=== PATIENT | male | born 1975 | race Caucasian/White ===

== ENCOUNTER 2017-11-25 16:31 | Emergency (ER) | payer OTHER ==
[~2017-11-25] VITALS: Ht 170.2 cm; Wt 100.0 kg
[2017-11-25 16:34] VITALS: BP 100/68; PULSE 73; RESP 16; TEMP 97.5; O2SAT 98
[2017-11-25] MEDS ORDERED: METO100T PO (17:23)
[2017-11-25] MEDS ORDERED: TRAM50TA PO (17:23)
[2017-11-25] MEDS ORDERED: ASPI1TAB57 PO (17:23)
[2017-11-25] MEDS ORDERED: PERC5TAB12 PO ×2 (17:23→18:40)
[2017-11-25] MEDS ORDERED: CYCL10TA PO ×2 (17:23→18:40)
[2017-11-25] MEDS ORDERED: SODIUM CHLOR 0.9% 1000 ML INJ 1,000 ML IV SCH (18:01)
[2017-11-25] MEDS ORDERED: SODIUM CHLORIDE 0.9% FLUSH 10 ML FLUSH IV FLUSH PRN (18:15)
[2017-11-25] MEDS ORDERED: KETOROLAC TROMETHAMINE 30 MG/ML (IVP) VIAL IVP ONE (18:15)
[2017-11-25] MEDS ORDERED: MORPHINE SULFATE 4 MG/ML INJ IV PUSH ONE (18:15)
[2017-11-25] MEDS ORDERED: predniSONE 20 MG TAB PO ONE (18:15)
[2017-11-25] MEDS ORDERED: ONDANSETRON HCL 4 MG/2 ML VIAL IVP ONE (18:15)
[2017-11-25 18:24] VITALS: O2SAT 100
--- NOTE | 2017-11-25 18:39 | PD ---
HPI Chief Complaint: Back/ Neck Pain or Injury Time Seen by Provider: 17:36 Travel History International Travel<30 days: Yes Contact w/Intl Traveler<30days: Yes Name of Country Traveled to: [place] Traveled to known affect area: No History of Present Illness HPI 42-year-old [place] male presents to the emergency department with his , who are visiting from [place] for her father who is currently in hospice care. Patient has history of multiple level lumbar back fusions while in [place]. The states he normally takes Percocet, or tramadol, as well as Flexeril for his pain. states that they have been here longer than they had expected, but plan to return to [place] in the next 2 weeks. Patient reportedly was sitting and reached up, when he developed excruciating back pain with radiation down both lower extremities. His states that this happens occasionally, and is normally treated with steroids and pain medicine. Patient denies any change in his bowel or bladder. He has chronic numbness in both feet which is not new. Pain is currently 9 out of 10, and worse with certain movements. He denies more weakness in the lower extremities and normal. Chief complaint is pain. He has no known drug allergies. PFSH Past Medical History Cardiovascular Problems: Yes ([facility]) Musculoskeletal: Yes (SPINAL FUSION ONE YEAR AGO) Myocardial Infarction: Yes (THREE) Tetanus Vaccination: Unknown Social History Alcohol Use: No Tobacco Use: No Substance Use: No Allergies-Medications (Allergen,Severity, Reaction): Coded Allergies: No Known Allergies (Unverified , 11/25/17) Reported Meds & Prescriptions Reported Meds & Active Scripts Active Flexeril (Cyclobenzaprine HCl) 10 Mg Tab 10 Mg PO TID Percocet (Oxycodone-Acetaminophen) 5-325 mg Tab 1-2 Tab PO Q6H PRN Prednisone 20 Mg Tab 20 Mg PO BID 7 Days Reported Aspirin 81 (Aspirin) 81 Mg Tabdr 81 Mg PO DAILY Metoprolol Tartrate 100 Mg Tab 100 Mg PO DAILY Flexeril (Cyclobenzaprine HCl) 10 Mg Tab 10 Mg PO TID Tramadol (Tramadol HCl) 50 Mg Tab 50 Mg PO Q6H PRN Percocet (Oxycodone-Acetaminophen) 5-325 mg Tab 1-2 Tab PO Q4H PRN Review of Systems Except as stated in HPI: all other systems reviewed are Neg General / Constitutional: No: Fever Eyes: No: Visual changes HENT: No: Headaches Cardiovascular: No: Chest Pain or Discomfort Respiratory: No: Shortness of Breath Gastrointestinal: No: Abdominal Pain Genitourinary: No: Dysuria Musculoskeletal: Positive: Arthralgias, Limited ROM, Pain Skin: No Rash Neurologic: No: Weakness Psychiatric: No: Depression Endocrine: No: Polydipsia Hematologic/Lymphatic: No: Easy Bruising Physical Exam Narrative GENERAL: Patient appears in moderate distress. SKIN: Warm and dry. Normal color. Normal turgor. There is notable that patient has multiple scars in his back and hip where the bone graft was obtained. This is consistent with his history. HEAD: Atraumatic. Normocephalic. EYES: Pupils equal and round. No scleral icterus. No injection or drainage. ENT: No nasal bleeding or discharge. Mucous membranes pink and moist. Pharynx is clear. Airway is patent NECK: Trachea midline. N supple and nontender. CARDIOVASCULAR: Regular rate and rhythm. RESPIRATORY: No accessory muscle use. Clear to auscultation. Breath sounds equal bilaterally. GASTROINTESTINAL: Abdomen soft, non-tender, nondistended. Hepatic and splenic margins not palpable. MUSCULOSKELETAL: Extremities without clubbing, cyanosis, or edema. No obvious deformities. Patient has generalized lumbar back pain without specific point tenderness. He does have positive straight leg raise pain more on the right than the left at 35. Patient has normal dorsiflexion and plantar flexion only limited by pain. NEUROLOGICAL: Awake and alert. No obvious cranial nerve deficits. Motor grossly within normal limits. Five out of 5 muscle strength in the arms and legs. Normal speech. PSYCHIATRIC: Appropriate mood and affect; insight and judgment normal. Data Data Last Documented VS Vital Signs Date Time Temp Pulse Resp B/P (MAP) Pulse Ox O2 Delivery O2 Flow Rate FiO2 11/25/17 18:24 100 Room Air 11/25/17 16:34 97.5 73 16 Orders Orders Iv Access Insert/Monitor (11/25/17 18:01) Ecg Monitoring (11/25/17 18:01) Oximetry (11/25/17 18:01) Morphine Inj (Morphine Inj) (11/25/17 18:15) Ondansetron Inj (Zofran Inj) (11/25/17 18:15) Sodium Chlor 0.9% 1000 Ml Inj (Ns 1000 M (11/25/17 18:01) Sodium Chloride 0.9% Flush (Ns Flush) (11/25/17 18:15) Ketorolac Inj (Toradol Inj) (11/25/17 18:15) Prednisone (Deltasone) (11/25/17 18:15) Ed Discharge Order (11/25/17 18:44) MDM Medical Decision Making Medical Screen Exam Complete: Yes Emergency Medical Condition: Yes Differential Diagnosis Chronic lumbar back pain with acute flare. Sciatica. Spinal stenosis Narrative Course Patient is medically stable at time of exam. Radiographic imaging is not felt warranted based on the history and physical. IV access is obtained and the patient is given 4 mg morphine IV, 4 mg Zofran IV , 60 mg prednisone p.o., and 1000 mL normal saline boluses given. Patient is reassessed. Patient is improved after the above treatment. Patient will be continued on prednisone 20 mg twice daily 7 days. Patient is given Percocet 5/325 1-2 tabs every 6 hours as needed #20 per Patient is given Flexeril 10 mg 3 times daily #30 per Patient is to follow-up with his orthopedist in [place] or return here if symptoms worsen. Patient referred to local clinics as needed per Diagnosis Primary Impression: Acute exacerbation of chronic low back pain Referrals: [facility] Orthopaedic Surgeon Patient Instructions: General Instructions Additional Instructions: Patient will be continued on prednisone 20 mg twice daily 7 days. Patient is given Percocet 5/325 1-2 tabs every 6 hours as needed #20 per Patient is given Flexeril 10 mg 3 times daily #30 per Patient is to follow-up with his orthopedist in [place] or return here if symptoms worsen. Patient referred to local clinics as needed per Med/Other Pt SpecificInfo: Prescription(s) given Scripts Cyclobenzaprine (Flexeril) 10 Mg Tab 10 MG PO TID for Muscle Spasm, #15 TAB 0 Refills Prov: Jeremiah Pittman MD 11/25/17 Oxycodone-Acetaminophen (Percocet) 5-325 mg Tab 1-2 TAB PO Q6H Y for PAIN, #20 TAB 0 Refills Prov: Jeremiah Pittman MD 11/25/17 Prednisone (Prednisone) 20 Mg Tab 20 MG PO BID for 7 Days, #14 TAB 0 Refills Prov: Jeremiah Pittman MD 11/25/17 Disposition: 01 DISCHARGE HOME Condition: Stable William Dickson Nov 25, 2017 18:39
[2017-11-25] MEDS ORDERED: PRED20 PO (18:40)
[2017-11-25 18:59] VITALS: BP 147/65
== END 2017-11-25 21:38 | disposition home or self-care (01) ==
LOC: NEPD 16:31
DX: M54.5 Low back pain (principal); G89.29 Other chronic pain; I45.6 Pre-excitation syndrome
CPT/HCPCS: 96374; 96375; 99284; J1885; J2270; J2405; J7030; J7512